=== PATIENT | female | born 1945 | race Caucasian/White ===

== ENCOUNTER 2025-09-18 07:47 | Outpatient (AMB) | payer MEDICARE, OTHER, SELFPAY ==
--- NOTE | 2025-09-18 08:00 | A.OFFPC_ITS ---
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 Assistant Required: No Accompanied by: Daughter Allergies Sulfa (Sulfonamide Antibiotics) (SULFA (SULFONAMIDE ANTIBIOTICS)) Allergy (Unknown, Verified 09/18/25 08:00) RASH Medication List - Last Reconciled 09/18/25 by Teresa Chacon MD ezetimibe 10 mg PO DAILY losartan 100 mg PO DAILY meclizine 25 mg PO TID PRN metformin 500 mg PO DAILY mirtazapine 15 mg PO BEDTIME Tobacco use date assessed: 09/18/25 Fall risk assessment: 1 Fall in past year Last assessed Fall Risk: 09/18/25 Dental Screening Dental Screen Date: 09/18/25 Did you have a dental visit in the last 12 months?: Yes Did you have a dental problem in the last 6 months where you did not have access to dental care?: No Was dental information given to patient?: Patient has dentist HPI HPI Comments History of Present Illness Details The patient is an 80-year-old female presenting to re-establish care and for management of chronic conditions, including dementia and anxiety. Dementia: The patient carries a diagnosis of what was previously described as short-term memory loss, which was updated to moderate dementia by her specialist at [facility] within the last year. Her daughter notes a worsening of symptoms, including increased repetition and panic episodes, particularly observed during a trip in March. The patient has experienced disorientation, requiring guidance to find her way in unfamiliar environments. Due to these changes, her has taken over meal preparation. Anxiety: The patient experienced a period of severe anxiety in February, for which she was prescribed mirtazapine. Her daughter also described an incident where the patient went into a panic mode after being left alone for 15 minutes.The medication has reportedly made a world of difference in managing her symptoms. Obstructive Sleep Apnea: The patient has a diagnosis of sleep apnea but has not used her CPAP machine in a while. Her supplies were obtained from [employer]. Hypercholesterolemia: The patient is taking ezetimibe for high cholesterol as she is unable to take statins. HTN- continue-losartan Diabetes Mellitus: The patient is on metformin for diabetes. B12 and vitamin d deficiency- due for repeat levels Medical History: - Moderate dementia - Anxiety - Obstructive sleep apnea - Diabetes mellitus - Hypercholesterolemia, with statin into lerance - HTN Social History: - The patient lives with her , wh o is her primary caregiver and assists with meal preparation. - Her daughter is highly involved in her care. - Functionally, she requires supervision due to memory issues and panic attacks when left alone. - For leisure, she watches sports on TV and socializes with friends in her community. - She reports drinking a couple of glass es of wine but was advised to abstain due to medication interactions and cognitive effects. - She reports good water intake, though was advised to increase to three 16- ounce bottles daily. Review of Systems -Constitutional: Reports weight gain. -Neurologic: Daughter reports progressiv e memory loss and disorientation. - Psychiatric: Reports feeling nervous a nd worried; daughter reports patient experiences panic and repetition. - Musculoskeletal: Denies significant pa in following a recent fall. Physical Exam - Vitals: Blood pressure is 110/80 mmHg. - HEENT: Ears are clear bilaterally. Shawn pharynx is normal with no erythema. - Pulmonary: Lungs are clear to ausculta tion bilaterally. - Cardiovascular: Normal heart sounds. A very soft murmur is present. - Abdomen: Soft, non-tender. Normoactive bowel sounds - Constitutional: Patient's weight is 15 5 lbs with a BMI less than 25. Assessment and Plan 1. Moderate Dementia - The patient's daughter has scheduled a second opinion and comprehensive assessment at the [facility] [employer] [facility] on October 18, which is supported. - The goal is to obtain a more thorough evaluation and explore potential clinical trials to slow cognitive decline. - Contact information was provided to en sure reports are forwarded to this office. 2. Obstructive Sleep Apnea with CPAP Non -adherence - The patient is currently not using her CPAP machine. - She has been strongly encouraged to re start consistent use, especially for at least a month prior to her specialist appointment, as untreated CHRISTINE can exacerbate memory impairment. - Her daughter will contact the ANGELA pierre, [employer], if there are issues with the mask or equipment. 3. Anxiety - The patient is responding well to mirt azapine. - Will continue the medication 4. Health Maintenance and Medication Man agement - The patient will continue metformin fo r diabetes and ezetimibe for hypercholesterolemia. - She has been advised to abstain from a lcohol due to medication interactions and to increase water intake. - Labs, including A1c, CMP, and vitamin levels, will be drawn today. - A patient portal account will be set u p for her daughter to manage communications and refills. 5. B12 and vitamin d deficiency- check [place] [place] 6. Follow-up and Care Coordination - The patient will follow up in the clin in four months. Discussion Notes I met with the patient and her daughter today to re-establish care. We discussed her recent diagnosis of moderate dementia and the family's plan to seek a comprehensive evaluation at the [facility] [employer] [facility], which I fully support. I strongly emphasized the importance of resuming consistent use of her CPAP machine for obstructive sleep apnea, explaining that untreated sleep apnea and the resulting lack of oxygen can negatively impact memory. I advised her to be compliant for at least a month before her specialist visit so the evaluation is not confounded by untreated sleep apnea. We also reviewed her medications, including the effectiveness of mirtazapine for her anxiety and the need to continue her medications for diabetes and cholesterol. I counseled her to abstain from drinking wine due to its interaction with her medications and its potential cognitive effects. Patient Instructions - Please proceed with your appointment a t the [facility] on October 18 for a full evaluation of your memory. - It is very important to start using yo ur CPAP machine again every night. This will help get more oxygen to your brain and can help with your memory. - Do not drink wine or any alcohol, as i t can interfere with your medications and affect your thinking. - Drink at least three 16-ounce bottles of water each day. - Continue taking your current medicatio ns for anxiety, diabetes, and cholesterol as prescribed. [facility] Medical History (Updated 09/18/25 @ 16:41 by Teresa Chacon MD) Vitamin B12 deficiency (dietary) anemia Vitamin D deficiency Sleep apnea Primary hypertension Anxiety Depression Hyperlipidemia, unspecified Diabetes mellitus type 2 in nonobese Dementia Surgical History (Updated 09/18/25 @ 07:43 by Teresa Chacon MD) History of cataract surgery Family History (Updated 09/18/25 @ 07:43 by Teresa Chacon MD) Other Family history of cervical cancer Social History [facility]: [facility] Patient Tobacco Use Status: Former Tobacco user Years Smoked: 20 years e-Cigarette/Vaping Use: Never Used Current occupational status: retired Questionnaire AUDIT C Alcohol Use Questionnaire (AUDIT-C) 1. How often do you have a drink containing alcohol?: Monthly or less 2. How many drinks containing alcohol do you have on a typical day when you are drinking?: 1 or 2 3. How often do you have six or more drinks on one occasion?: Never Total Score: 1 Physical exam (Primary Care) Vital Signs: Last Vital Signs Temp 97.1 F 09/18/25 08:02 Pulse 85 09/18/25 08:02 Resp 16 09/18/25 08:02 BP 118/70 09/18/25 08:42 Pulse Ox 95 09/18/25 08:02 Oxygen Delivery Method Room Air 09/18/25 08:02 BMI result Body Mass Index 23.6 Tobacco/Smoking Status: Tobacco use Status Tobacco use date assessed 09/18/25 09/18/25 08:08 Patient Tobacco Use Status Former Tobacco user 09/18/25 08:08 e-Cigarette/Vaping Use Never Used 09/18/25 08:08 Coding Level of Care Code Est Pt Level 4 (42517) Complex EM visit Add On G2211 Diagnoses Primary hypertension I10 Hyperlipidemia, unspecified hyperlipidemia type E78.5 Hyperlipidemia type: unspecified Diabetes mellitus type 2 in nonobese E11.9 Vitamin B12 deficiency (dietary) anemia D51.8 Vitamin D deficiency E55.9 Dementia with anxiety, unspecified dementia severity, unspecified dementia type F03.94 Dementia type: unspecified type Dementia severity: unspecified severity Dementia behavioral or psychological symptom: with anxiety Assessment & Plan Assessment & Plan (1) Primary hypertension: Code(s): I10 - Essential (primary) hypertension Category: Medical (2) Hyperlipidemia, unspecified: Code(s): E78.5 - Hyperlipidemia, unspecified Category: Medical Qualifiers: Hyperlipidemia type: unspecified Qualified Code(s): E78.5 - Hyperlipidemia, unspecified (3) Diabetes mellitus type 2 in nonobese: Code(s): E11.9 - Type 2 diabetes mellitus without complications Category: Medical (4) Vitamin B12 deficiency (dietary) anemia: Code(s): D51.8 - Other vitamin B12 deficiency anemias Category: Medical (5) Vitamin D deficiency: Code(s): E55.9 - Vitamin D deficiency, unspecified Category: Medical (6) Dementia: Code(s): F03.90 - Unspecified dementia, unspecified severity, without behavioral disturbance, psychotic disturbance, mood disturbance, and anxiety Category: Medical Qualifiers: Dementia type: unspecified type Dementia severity: unspecified severity Dementia behavioral or psychological symptom: with anxiety Qualified Code(s): F03.94 - Unspecified dementia, unspecified severity, with anxiety Plan - Support plan for a comprehensive dementia assessment at the [facility] on October 18. - The patient was strongly advised to resume consistent nightly use of her CPAP machine for sleep apnea. - Continue mirtazapine for anxiety - Continue metformin for diabetes and ezetimibe for hypercholesterolemia. - The patient was counseled to abstain from alcohol (wine). - The patient was advised to increase daily water intake to three 16-ounce bottles. Orders: Orders Vitamin D 25-OH Total Today D51.8 - Other vitamin B12 deficiency anemias, E11.9 - Type 2 diabetes mellitus without complications, E55.9 - Vitamin D deficiency, unspecified, E78.5 - Hyperlipidemia, unspecified, I10 - Essential (primary) hypertension Comprehensive Met. Panel Today D51.8 - Other vitamin B12 deficiency anemias, E11.9 - Type 2 diabetes mellitus without complications, E55.9 - Vitamin D defici ency, unspecified, E78.5 - Hyperlipidemia, unspecified, I10 - Essential (primary) hypertension Microalbumin, Random (w Creat) Today E11.9 - Type 2 diabetes mellitus without complications Complete Blood Count Auto Diff Today D51.8 - Other vitamin B12 deficiency anemias, E11.9 - Type 2 diabetes mellitus without complications, E55.9 - Vitamin D deficiency, unspecified, E78.5 - Hyperlipidemia, unspecified, I10 - Essential (primary) hypertension Lipid Panel Today D51.8 - Other vitamin B12 deficiency anemias, E11.9 - Type 2 diabetes mellitus without complications, E55.9 - Vitamin D deficiency, unspecified, E78.5 - Hyperlipidemia, unspecified, I10 - Essential (primary) hypertension Hemoglobin A1c Today D51.8 - Other vitamin B12 deficiency anemias, E11.9 - Type 2 diabetes mellitus without complications, E55.9 - Vitamin D deficiency, unspecified, E78.5 - Hyperlipidemia, unspecified, I10 - Essential (primary) hypertension TSH reflex Free T4 Today D51.8 - Other vitamin B12 deficiency anemias, E11.9 - Type 2 diabetes mellitus without complications, E55.9 - Vitamin D deficiency, unspecified, E78.5 - Hyperlipidemia, unspecified, I10 - Essential (primary) hypertension Vitamin B12 Today D51.8 - Other vitamin B12 deficiency anemias, E11.9 - Type 2 diabetes mellitus without complications, E55.9 - Vitamin D deficiency, unspecified, E78.5 - Hyperlipidemia, unspecified, I10 - Essential (primary) hypertension Medications: New mirtazapine 15 mg PO BEDTIME 90 tabs 3RF
[2025-09-18 08:02] VITALS: BP 140/70; PULSE 85; RESP 16; TEMP 36.2; O2SAT 95; BMI 23.6
[2025-09-18 08:42] VITALS: BP 118/70
== END 2025-09-18 08:57 | disposition home or self-care (01) ==
LOC: HO.HMCHD 07:48
PROVIDERS: PCP Internal Medicine; Visit Provider Internal Medicine
DX: I10 Essential (primary) hypertension (principal); E78.5 Hyperlipidemia, unspecified; E11.9 Type 2 diabetes mellitus without complications; D51.8 Other vitamin B12 deficiency anemias; E55.9 Vitamin D deficiency, unspecified; F03.94 Unspecified dementia, unspecified severity, with anxiety

== ENCOUNTER 2025-09-18 09:00 | Outpatient (REF) | payer MEDICARE, OTHER, SELFPAY ==
[2025-09-18 10:46] LABS: MANUAL DIFF FLAG NO
[2025-09-18 10:50] LABS: Hematocrit 41.8 % (37.0-47.0); Hemoglobin 13.3 g/dl (12.0-16.0); Imm Gran Abs Auto 0.02 X10*3/uL (0.00-0.03); Imm Gran Pct Auto 0.3 % (0.0-0.4); Lymphocytes Absolute Auto 1.4 X10*3/uL (1.2-4.9); Mean Corpuscular HGB Conc 31.8 g/dl (31.0-35.0); Mean Corpuscular Hemoglobin 29.4 pg (27.0-33.0); Mean Corpuscular Volume 92.3 fL (80.0-98.0); NRBC Abs Auto 0.000 X10*3/uL (0.0-0.012); NRBC Pct Auto 0.0 /100WBC (0.0-0.2); Platelet Count 252 X10*3/uL (160-400); Red Blood Count 4.53 X10*6/uL (4.20-5.50); White Blood Count 6.9 X10*3/uL (4.8-10.8)
[2025-09-18 11:18] LABS: Microalbum/Creatinine Ratio Ur 41.7 ug/mg cr (<30)
[2025-09-18 11:31] LABS: Alanine Aminotransferase 17 U/L (0-31); Albumin Level 4.4 g/dL (3.5-5.0); Alkaline Phosphatase 78 U/L (39-117); Anion Gap 11 (12-20); Aspartate Amino Transferase 21 U/L (5-31); Blood Urea Nitrogen 14 mg/dL (9-16); Calcium 10.0 mg/dL (8.4-10.2); Carbon Dioxide 26 mmol/L (22-29); Chloride 106 mmol/L (96-108); Cholesterol 261 mg/dL (<200); Estimated Glomerular Filt Rate > 60; HDL Cholesterol 63 mg/dL (>40); Potassium 4.4 mmol/L (3.3-5.1); Sodium 139 mmol/L (135-145); Total Protein 6.9 g/dL (6.5-8.0); Triglycerides 148 mg/dL (<150)
[2025-09-18 11:44] LABS: Vitamin B12 1256 pg/mL (200-900)
== END 2025-09-18 09:01 | disposition home or self-care (01) ==
LOC: HO.10HDL 09:00
PROVIDERS: Visit Provider Internal Medicine
DX: I10 Essential (primary) hypertension (principal); E11.9 Type 2 diabetes mellitus without complications; E78.5 Hyperlipidemia, unspecified; E55.9 Vitamin D deficiency, unspecified; D51.8 Other vitamin B12 deficiency anemias
CPT/HCPCS: 36415; 80053; 80061; 82043; 82306; 82570; 82607; 83036; 84443; 85025; 99212